=== PATIENT | male | born 1975 | race Caucasian/White ===

== ENCOUNTER 2024-08-04 13:49 | Emergency (ER) | payer OTHER ==
--- NOTE | 2024-08-04 15:14 | ED ---
Headache HPI - General Chief Complaint: Headache Stated Complaint: Headache Time Seen by Provider: 08/04/24 15:11 Source: RN notes reviewed Mode of arrival: ambulatory Limitations: no limitations - History of Present Illness Initial Comments: 48-year-old male presented to the ER with headache x 1 week. States he has a history of a nasal polyp on the right side that he previously followed with ENT specialist in [facility]. States he was scheduled for surgery to remove the nasal polyp 2 times, however reports he walked out of the surgery the first time and did not have transportation to the surgery the second time. States he believes the polyps cause his headaches. Over the last week, states headache has been constant and on right side of forehead and underneath eye. This is similar in quality to previous headaches, specifically headache he had when he was COVID-positive. Denies blood thinners. No other health conditions. States [id number] meds mildly relieves symptoms. Denies head trauma, vision changes, lightheadedness, numbness, tingling, or weakness of the extremities. - Related Data Allergies Allergy/AdvReac Type Severity Reaction Status Date / Time No Known Allergies Allergy Verified 08/04/24 13:58 Review of Systems ROS Statement: Those systems with pertinent positive or pertinent negative responses have been documented in the HPI. ROS Other: All systems not noted in ROS Statement are negative. Past Medical History Additional Past Medical History / Comment(s): TB Past Surgical History: Tonsillectomy Smoking Status: Current every day smoker Past Alcohol Use History: None Reported Past Drug Use History: Marijuana General Exam Limitations: no limitations General appearance: alert, in no apparent distress Head exam: Present: atraumatic, normocephalic, normal inspection Eye exam: Present: normal appearance, PERRL, EOMI. Absent: scleral icterus, conjunctival injection, periorbital swelling ENT exam: Present: normal exam, mucous membranes moist. Absent: normal oropharynx (Large nasal polyp visible in right nare, no active bleeding) Neck exam: Present: normal inspection. Absent: tenderness, meningismus, lymphadenopathy Respiratory exam: Present: normal lung sounds bilaterally. Absent: respiratory distress, wheezes, rales, rhonchi, stridor Cardiovascular Exam: Present: regular rate, normal rhythm, normal heart sounds. Absent: systolic murmur, diastolic murmur, rubs, gallop, clicks Neurological exam: Present: alert, oriented X3, CN II-XII intact Psychiatric exam: Present: normal affect, normal mood Skin exam: Present: warm, dry, intact, normal color. Absent: rash Course Vital Signs 08/04/24 08/04/24 08/04/24 13:59 16:02 16:54 Temperature 97.4 F L 97.9 F 98.1 F Pulse Rate 72 66 62 Respiratory 18 18 17 Rate Blood Pressure 124/70 93/60 97/64 O2 Sat by Pulse 98 97 99 Oximetry Medical Decision Making - Medical Decision Making Was pt. sent in by a medical professional or institution (, PA, [employer], urgent care, hospital, or usp...) When possible be specific @ -No Did you speak to anyone other than the patient for history (EMS, parent, family, police, friend...)? What history was obtained from this source @ -No Did you review nursing and triage notes (agree or disagree)? Why? @ -I reviewed and agree with nursing and triage notes Were old charts reviewed (outside hosp., previous admission, EMS record, old EKG, old radiological studies, urgent care reports/EKG's, usp records)? Report findings @ -No old charts were reviewed Differential Diagnosis (chest pain, altered mental status, abdominal pain women, abdominal pain men, vaginal bleeding, weakness, fever, dyspnea, syncope, headache, dizziness, GI bleed, back pain, seizure, CVA, palpatations, mental health, musculoskeletal)? @ -Differential Headache: Migraine, tension, cluster, carbon monoxide, central venous thrombosis, pension karma temporal arteritis, acute closure glaucoma, intercranial hemorrhage, mastoiditis, sinusitis, head injury, this is not meant to be an all-inclusive list. EKG interpreted by me (3pts min.). @ -None X-rays interpreted by me (1pt min.). @ -None done CT interpreted by me (1pt min.). @ -CT brain reveals no acute bleed or mass effect, severe pansinusitis, abnormal soft tissue density/mass in right nasal cavity and nasopharynx U/S interpreted by me (1pt. min.). @ -None done What testing was considered but not performed or refused? (CT, X-rays, U/S, labs)? Why? @ -None What meds were considered but not given or refused? Why? @ -None Did you discuss the management of the patient with other professionals (professionals i.e. , PA, [employer]ER, lab, RT, psych nurse, medical social consultant, home therapy clinician, teacher, seaman officer, watch caser)? Give summary @ -No Was smoking cessation discussed for >3mins.? @ -No Was critical care preformed (if so, how long)? @ -No Were there social determinants of health that impacted care today? How? (Homelessness, low income, unemployed, alcoholism, drug addiction, transportation, low edu. Level, literacy, decrease access to med. care, senior living, rehab)? @ -No Was there de-escalation of care discussed even if they declined (Discuss DNR or withdrawal of care, Hospice)? DNR status @ -No What co-morbidities impacted this encounter? (DM, HTN, Smoking, COPD, CAD, Cancer, CVA, ARF, Chemo, Hep., AIDS, mental health diagnosis, sleep apnea, morbid obesity)? @ -None Was patient admitted / discharged? Hospital course, mention meds given and route, prescriptions, significant lab abnormalities, going to OR and other pertinent info. @ -Discharge. This is a 48-year-old male presenting with headache for 1 week. States he has a history of nasal polyp which he has previously followed with ENT for and surgery was recommended. Vital signs are within acceptable limits. Neuro examination is unremarkable. Patient was provided with IV fluids, and analgesics. Patient is negative for COVID, influenza, and RSV. CT brain reveals no acute bleed or mass effect, severe. Sinusitis, abnormal soft tissue density/mass in right nasal cavity and nasopharynx. Results discussed with patient. Upon reevaluation, reports symptoms have significantly improved. Advised patient to follow-up with ENT specialist. Appropriate return precautions and follow-up care discussed. Patient is agreeable to plan. Case discussed with my ED attending Dr. Waldron Undiagnosed new problem with uncertain prognosis? @ -No Drug Therapy requiring intensive monitoring for toxicity (Heparin, Nitro, Insulin, Cardizem)? @ -No Were any procedures done? @ -No Diagnosis/symptom? @ -Headache, nasal polyp Acute, or Chronic, or Acute on Chronic? @ -Acute Uncomplicated (without systemic symptoms) or Complicated (systemic symptoms)? @ -Uncomplicated Side effects of treatment? @ -No Exacerbation, Progression, or Severe Exacerbation? @ -No Poses a threat to life or bodily function? How? (Chest pain, [place], [place], pneumonia, PE, COPD, DKA, ARF, appy, cholecystitis, CVA, Diverticulitis, Homicidal, Suicidal, threat to staff... and all critical care pts) @ -No - Lab Data Lab Results 08/04/24 Range/Units 15:16 Influenza Type A (PCR) Not Detected (Not Detectd) Influenza Type B (PCR) Not Detected (Not Detectd) RSV (PCR) Not Detected (Not Detectd) SARS-CoV-2 (PCR) Not Detected (Not Detectd) Disposition Clinical Impression: Headache, Nasal polyp Disposition: HOME SELF-CARE Condition: Stable Instructions (If sedation given, give patient instructions): Acute Headache (ED) Additional Instructions: Follow-up with ENT as discussed. Please return to the Emergency Department if symptoms worsen or any other concerns. Is patient prescribed a controlled substance at d/c from ED?: No Referrals: [facility] [NON-STAFF] - 1-2 days [facility] [NON-STAFF] - 1-2 days None,Stated [Primary Care Provider] - 1-2 days Keaton Sharma MD [STAFF PHYSICIAN] - 1-2 days Forms: Area PCPs Time of Disposition: 16:35
[2024-08-04] MEDS: SODIUM CHLORIDE 0.9% 500 ML 500 ML IV STA (15:22)
[2024-08-04] MEDS: DEXAMETHASONE SOD PHOSPHATE 10 MG/ML 1 ML VIAL IVP STA (15:24)
[2024-08-04] MEDS: METOCLOPRAMIDE 5 MG/ML 2 ML VIAL IVP STA (15:27)
[2024-08-04] MEDS: diphenhydrAMINE 50 MG/ML 1 ML VIAL IVP STA (15:29)
--- NOTE | 2024-08-04 15:52 | CT ---
EXAMINATION TYPE: CT brain wo con DATE OF EXAM: 08/04/2024 COMPARISON: None CLINICAL INDICATION: Male, 48 years old with history of headache x 1 week; [facility], c/o headache CT DLP: 1199.9 mGycm Automated exposure control for dose reduction was used. Findings: The ventricles, basal cisterns and sulci over the convexities are within normal limits and there is n o mass effect or shift of midline structures. No abnormal density is seen throughout the brain parenchyma and there is no acute intra or extra-axia l hemorrhage. The posterior fossa including the brainstem, fourth ventricle and cerebellar pontine angles appear no rmal. Intraorbital contents appear normal and symmetric. There is complete opacification the right maxillary sinus and multiple ethmoid air cells as well as t he frontal sinuses. There is near complete opacification of the left maxillary sinus. The sphenoid si nuses are well aerated. There is marked abnormal soft tissue density in the right nasal cavity extending posteriorly into the nasopharynx. The possibility of a mass or abscess within the nasal cavity and pharynx to be consider ed and further evaluation is warranted The calvarium is intact. The mastoid air cells and middle ear cavities are well aerated. IMPRESSION: 1. No acute bleed or mass effect. 2. Severe pansinusitis. 3. Abnormal soft tissue density/mass in the right nasal cavity and nasopharynx reason the question of abscess or neoplasm. Further evaluation is warranted. [facility], , 08/04/2024 3:50 PM
[2024-08-04 16:57] VITALS: BP 97/64; PULSE 62; RESP 17; TEMP 98.1
== END 2024-08-04 16:58 | disposition home or self-care (01) ==
LOC: EC 13:49
DX: J33.9 Nasal polyp, unspecified (principal); F17.200 Nicotine dependence, unspecified, uncomplicated
CPT/HCPCS: 87636; 70450; 99284; 96374; 96375 ×2; 96361; J1200; J1100; J2765